=== PATIENT | male | born 1950 | race Hispanic/Latino ===

== ENCOUNTER → 2017-05-25 | Outpatient (CLI) | payer OTHER | END | disposition home or self-care (01) | LOC: RAH 11:59 | PROVIDERS: ATTEND Internal Medicine | DX: J44.9 Chronic obstructive pulmonary disease, unspecified (principal); I10 Essential (primary) hypertension | CPT/HCPCS: 71046 ==

== ENCOUNTER → 2017-06-04 | Outpatient (CLI) | payer OTHER | END | disposition home or self-care (01) | LOC: RAH 09:26 | PROVIDERS: ATTEND Internal Medicine | DX: Z87.891 Personal history of nicotine dependence (principal) | CPT/HCPCS: 76775 ==

== ENCOUNTER → 2018-01-21 | Outpatient (CLI) | payer OTHER | END | disposition home or self-care (01) | LOC: RAH 09:33 | PROVIDERS: ATTEND Internal Medicine | DX: M54.2 Cervicalgia (principal); I10 Essential (primary) hypertension; J44.9 Chronic obstructive pulmonary disease, unspecified; Z87.891 Personal history of nicotine dependence | CPT/HCPCS: 70360 ==

== ENCOUNTER → 2018-05-22 | Outpatient (CLI) | payer OTHER, SELFPAY | END | disposition home or self-care (01) | LOC: OIH 14:20 | PROVIDERS: ATTEND Internal Medicine Cardiovascular Disease | DX: Z13.6 Encounter for screening for cardiovascular disorders (principal) | CPT/HCPCS: 75571 ==

== ENCOUNTER → 2018-05-28 | Outpatient (CLI) | payer OTHER | END | disposition home or self-care (01) | LOC: SHCH 11:39 | PROVIDERS: ATTEND Internal Medicine Cardiovascular Disease | DX: I10 Essential (primary) hypertension (principal) | CPT/HCPCS: 93306 ==

== ENCOUNTER → 2018-09-23 | Outpatient (CLI) | payer OTHER | END | disposition home or self-care (01) | LOC: RAH 13:01 | PROVIDERS: ATTEND Internal Medicine | DX: M19.012 Primary osteoarthritis, left shoulder (principal) | CPT/HCPCS: 73030 ==

== ENCOUNTER → 2024-02-15 | Outpatient (CLI) | payer OTHER | END | disposition home or self-care (01) | LOC: RAH 10:39 | PROVIDERS: ATTEND Nurse Practitioner Family | DX: M47.812 Spondylosis without myelopathy or radiculopathy, cervical region (principal); M54.2 Cervicalgia; W19.XXXA Unspecified fall, initial encounter | CPT/HCPCS: 72040 ==

== ENCOUNTER → 2024-03-20 | Outpatient (CLI) | payer OTHER ==
--- NOTE | 2024-03-20 14:49 | HMCIMG ---
CHEST 2VWS HISTORY: COPD COMPARISON: 05/25/2015 FINDINGS: Frontal and lateral projections of the chest were obtained. There is no acute pulmonary infiltrates or failure. The heart is not enlarged. Aortic calcifications are seen. Prominent interstitial markings are seen. Degenerative changes are seen of the thoracolumbar spine. IMPRESSION: 1. No acute pulmonary infiltrates.
== END | disposition home or self-care (01) ==
LOC: RAH 11:51
DX: J44.9 Chronic obstructive pulmonary disease, unspecified (principal); M47.815 Spondylosis without myelopathy or radiculopathy, thoracolumbar region; I70.0 Atherosclerosis of aorta
CPT/HCPCS: 71046

== ENCOUNTER 2024-09-21 17:23 | Emergency (ER) | payer OTHER ==
[~2024-09-21] VITALS: Ht 180.3 cm; Wt 97.1 kg
[2024-09-21 18:21] LABS: MEAN CORPUSCULAR HEMOGLOBIN 32.1 pg (27.0-33.0); MEAN CORPUSCULAR HGB CONC 33.3 g/dL (32.0-36.0); MEAN CORPUSCULAR VOLUME 96.4 fL (79-99); RED BLOOD CELL COUNT(AUTO) 4.98 MIL/uL (4.50-6.20); RED CELL DISTRIBUTION WIDTH 13.8 % (11.0-15.5); WHITE BLOOD COUNT (AUTO) 11.5 K/uL (4.8-10.8)
[2024-09-21 18:30] LABS: POTASSIUM 3.9 mmol/L (3.5-5.1)
--- NOTE | 2024-09-21 18:36 | ERN ---
ED Note History of Present Illness Stated Complaint: THROAT PAIN,PAIN WHILE EATING Chief Complaint: Sore Throat Time Seen by MD: 17:35 Dictation: 73-year-old male presents to the ED for evaluation of throat pain onset three days ago. Patient reports difficulty swallowing, but denies any fever, SOB or other associated symptoms at this time. Allergies: Coded Allergies: No Known Drug Allergies (Unverified Allergy, Unknown, 09/21/24) Past Medical History Past Medical History: Diabetes-Type II Surgical History: None Review of System Dictation Constitutional: Negative for fever,chills, and weight loss Eyes: Negative for injury, pain,redness, and discharge ENT: Positive for throat pain, difficulty swallowing Cardiovascular: Negative for chest pain, palpitations, and edema Respiratory: Negative for shortness of breath, cough, and wheezing, Abdomen/GI: Negative for abdominal pain, nausea, vomiting, diarrhea, and con stipation Back: Negative for injury and pain : Negative for injury, bleeding and discharge MS/Extremity: Negative for injury and deformity Skin: Negative for rash, and discoloration Neuro: Negative for headache, weakness, numbness, tingling, and seizure Psych: Negative for suicide ideation, homicidal ideation, and hallucinations Initial Vital Sign VS Vital Signs Date Time Temp Pulse Resp B/P (MAP) Pulse Ox O2 Delivery O2 Flow Rate FiO2 09/21/24 17:31 98.4 95 14 123/71 96 Room Air 0 09/21/24 19:24 21 Physical Exam Dictation General: awake, alert, NAD Head/Face: Normocephalic, atraumatic Eyes: PERRL, EOMI, vision at baseline ENT: Pseudomembrane exudates and erythema to posterior pharynx Neck: Trachea midline, supple, no nuchal rigidity Cardiovascular: RRR, normal S1/S2, No MRGs, no JVD Respiratory: CTAB, no respiratory distress, No rales or wheezes Abdomen: Soft, non-tender, non-distended, normal bowel sounds, no guarding or rebound. Skin: Warm, dry, normal turgor, no rash MS/Extremity: Pulses equal, no cyanosis, neurovascular intact, FROM Neuro: COAx4, GCS 15, strength 5/5, CN 2-12 intact, normal cerebellar exam, normal gait, Psych: Normal behavior, mood, and affect normal Results (Laboratory/Radiology) Laboratory/Radiology Laboratory Tests Test 5/11/25 17:38 09/21/24 18:10 Group A Streptococcus Rapid positive (NEGATIVE) *A White Blood Count 11.5 K/uL (4.8-10.8) H Red Blood Count 4.98 MIL/uL (4.50-6.20) Hemoglobin 16.0 g/dL (14.0-18.0) Hematocrit 48.0 % (42-54) Mean Corpuscular Volume 96.4 fL (79-99) Mean Corpuscular Hemoglobin 32.1 pg (27.0-33.0) Mean Corpuscular Hemoglobin Concent 33.3 g/dL (32.0-36.0) Red Cell Distribution Width 13.8 % (11.0-15.5) Platelet Count 228 K/uL (130-400) Mean Platelet Volume 10.6 fL (7.5-10.5) H Nucleated Red Blood Cells 0.0 % (0.0-0.19) Sodium Level 138 mmol/L (136-145) Potassium Level 3.9 mmol/L (3.5-5.1) Chloride Level 102 mmol/L (101-111) Carbon Dioxide Level 26 mmol/L (21-32) Blood Urea Nitrogen 19 mg/dL (7-18) H Creatinine 1.0 mg/dL (0.5-1.3) Glomerular Filtration Rate Calc 80 mL/min (>90) Random Glucose 158 mg/dL (70-105) H Total Calcium 9.2 mg/dL (8.5-10.1) Labs Reviewed?: Yes CT Scan Comment: REASON: evaluate parapharyngeal abscess , and IJ clots ? Lemmieres ORDERING PHYSICIAN: JOSH BARBOUR MD PROCEDURE: NKSOFTI W - CT NECK SOFT TISS W/CONTRAST CT NECK SOFT TISS W/CONTRAST HISTORY: evaluate parapharyngeal abscess , and IJ clots ? Lemmieres TECHNIQUE: CT soft tissue neck was performed after intravenous administration of Omnipaque contrast. Coronal and sagittal reformats were obtained. CT was performed with one or more of the following dose reduction techniques: Automated exposure control, adjustment of the mA and/or kV according to the patient's size, or use of the iterative reconstruction technique. Comparison study performed earlier the same day. FINDINGS: Redemonstration of asymmetric soft tissue swelling involving the right palatine/lingual tonsil as well as oropharynx and pharynx. There is no evidence of peritonsillar abscess. Right IJ is grossly within normal limits. No obvious clot is identified. The remainder of the study is stable. IMPRESSION: 1. Redemonstration of asymmetric soft tissue swelling involving the right palatine/lingual tonsil as well as oropharynx and pharynx. There is no evidence of peritonsillar abscess. 2. Right IJ is grossly within normal limits. No obvious clot is identified. DICTATED BY: DASH ARANGO MD DATE: 09/21/242109 ELECTRONICALLY SIGNED BY: DASH ARANGO MD DATE: 09/21/242114 ED Course ED Course Orders Procedure Category Date Status Time Rapid (Group A Strep) LAB 09/21/24 Complete 17:37 Cbc Without LAB 09/21/24 Complete Differential 17:37 Basic Metabolic Panel LAB 09/21/24 Complete 17:37 Ceftriaxone 1g Vial PHA 09/21/24 Complete (Rocephine 1g Inj) 18:30 Dexamethasone 4mg/Ml PHA 09/21/24 Complete 1ml Vial (Dexametha 18:30 Ct Neck Soft Tiss W/O CT 09/21/24 Resulted Contrast 18:33 0.9% Nacl 500ml PHA 09/21/24 Complete Iv.Soln (Ns 500ml 20:[address] Ct [address] T[address] 09/21/24 Resulted W/Contrast 20:17 Iohexol (Omnipaque) PHA 09/21/24 Complete 20:29 Current Medications Medications (Trade) Dose Ordered Sig/Sandhya Route PRN Reason Start Time Stop Time Status Last Admin Dose Admin Ceftriaxone Sodium (ROCEphine 1G INJ) 1 gm ONCE ONCE IM 09/21/24 18:30 09/21/24 18:31 DC 09/21/24 19:05 Dexamethasone Sodium Phosphate (dexaMETHasone 4MG/ML 1ML VIAL) 10 mg ONCE ONCE IM 09/21/24 18:30 09/21/24 18:31 DC 09/21/24 19:05 Iohexol (Omnipaque) 50 ml STK-MED ONCE IV 09/21/24 20:29 09/21/24 20:30 DC Sodium Chloride 500 ml @ 0 mls/hr ONCE ONCE IV 09/21/24 20:30 09/21/24 20:31 DC 09/21/24 21:10 Vital Signs Date Time Temp Pulse Resp B/P (MAP) Pulse Ox O2 Delivery O2 Flow Rate FiO2 09/21/24 19:24 98.4 18 18 123/72 98 Room Air* 0 21 09/21/24 17:31 98.4 95 14 123/71 96 Room Air 0 7:00 p.m. patient was signed out to me by a.m. physician. I also independently re-evaluated the patient This is a 73-year-old male who came into the ER complaining of dysphagia and pa in in the neck anteriorly when he swallows. No history of any fevers chills or rigors no difficulty breathing. We will to swallow liquids but complains of pain. He has had bad teeth and is supposed to get surgery. Afebrile vital signs are stable. Labs reviewed has a WBC of 11.5 BUN and creatinine are [address] soft tissues of the neck without contrast showed only asymmetric swelling in the pharyngeal area with the palatine and lingual tonsils are. 7:45 p.m. after my re-evaluation, requested a CT scan of the soft tissues of the neck with contrast as I was concerned about Lemmiers syndrome. I spent a long time with the patient and spouse at bedside and updated them on labs and the CT soft tissues findings and my concerns and need for contrast study and they are agreeable I explained to them that if there is a drainable abscess efforts will be made to transfer him to a facility with ENT availability. I also called radiologist Dr. Schuler to see if there was any drainable abscess or fluid collection and he indicated that he could not comment on all that on a noncontrast study. 9:[address] scan of the soft tissues of the neck with contrast did not show any clot in the IJ. And there was no drainable obvious fluid. I updated the patient and spouse and we will discharge him to home with a trial of steroid and Augmentin for 10 days Medical Decision Making MDM MDM: Differential diagnosis: Strep, peritonsillar abscess, Lemmiers syndrome, mass lesion 1899- Patient care is being transferred to Dr. Barbour at shift change Risk of complication and/or morbidity or mortality of patient management: None Medications-Per medication reconciliation Need for hospitalization: Patient does not meet criteria for hospitalization. Need for emergency major/minor surgery: No There are no social concerns with this patient. Prescription drug management Prescriptions will include symptomatic care I independently interpreted the test that were performed, results were reviewed by me and considered findings on radiology if ordered. Medical management and examination interpretation discussions were had by me with other qualified healthcare professionals as indicated for the patient's care. Problem List Problem List: (1) Streptococcal pharyngitis (2) Tonsillitis DX & DISP Disposition: Discharge Departure Impression: Primary Impression: Tonsillitis Additional Impression: Streptococcal pharyngitis Condition: Stable Scripts Prednisone (Prednisone) 50 Mg Tablet 50 MG PO DAILY for 5 Days, #5 TAB 0 Refills Prov: JOSH BARBOUR MD 09/21/24 Amoxicillin/Potassium Clav (Augmentin 500-125 Tablet) 500 Mg-125 Mg Tablet 1 TAB PO BID for 10 Days, #20 TAB 0 Refills Prov: JOSH BARBOUR MD 09/21/24 Additional Instructions: Patient and the caregiver have been informed of all the diagnostic tests and the imaging conducted during the today's visit to the emergency room and has verbalized understanding of the results I have personally reviewed and interpreted all diagnostic exams performed here in the ER today as well as the vital signs documented by the nursing staff. The patient is now being discharged to home and should follow up with the primary care physician or the specialist as directed by the ER staff. Follow-up with primary care provider in 1 to 2 days. Take medications as directed here in the emergency room. Okay to continue home medications unless otherwise discussed during your visit in the emergency room today. Return to your nearest emergency room if symptoms worsen or if there is no improvement. C all 911 if you need immediate assistance. Take Tylenol or Motrin [id number] as needed and if no contraindications are present. Increase oral hydration. A wound culture or urine culture was ordered here in the emergency room department please follow-up with primary care provider and advise them to get repeat ports from our facility. If you had any German wrap/splints that were applied here, please do not remove them until you see your primary care or specialty. Referrals: SARAH ZENG MD (PCP) SHELL THURMAN MD September 21, 2024 18:36 JOSH BARBOUR MD September 21, 2024 20:13
--- NOTE | 2024-09-21 18:47 | NUR ---
Placed 20g on right hand.
--- NOTE | 2024-09-21 18:50 | NUR ---
Patient went to CT.
[2024-09-21] MEDS: dexaMETHasone SOD PHOSPHATE 4 MG/ML 1ML VIAL IM ONE (19:05)
[2024-09-21] MEDS: cefTRIAXone 1G VIAL IM ONE (19:05)
--- NOTE | 2024-09-21 19:36 | HMCIMG ---
CT NECK SOFT TISS W/O CONTRAST HISTORY: throat pain and swelling TECHNIQUE: CT soft tissue neck was performed without contrast. Coronal and sagittal reformats were obtained. CT was performed with one or more of the following dose reduction techniques: Automated exposure control, adjustment of the mA and/or kV according to the patient's size, or use of the iterative reconstruction technique. FINDINGS: The noncontrast nature this study limits evaluation for mass and fluid collection. Asymmetric soft tissue swelling of the right palatine/lingual tonsil, right oropharynx and pharynx. Concerning for an inflammatory/infectious changes, underlying mass not excluded. Correlate clinically. Consider direct visualization. Epiglottis and prevertebral soft tissues are within normal limits. Prominent bilateral neck lymph nodes, nonspecific. Multilevel cervical spondylosis is seen. Lung apices are clear. IMPRESSION: Asymmetric soft tissue swelling of the right palatine/lingual tonsil, right oropharynx and pharynx. Concerning for an inflammatory/infectious changes, underlying mass not excluded. Correlate clinically. Consider direct visualization.
[2024-09-21] MEDS ORDERED: IOHEXOL-350 50ML VIAL IV ONE (20:29)
[2024-09-21] MEDS: 0.9% NACL 500ML IV.SOLN 500 ML IV ONE (21:10)
--- NOTE | 2024-09-21 21:15 | HMCIMG ---
CT NECK SOFT TISS W/CONTRAST HISTORY: evaluate parapharyngeal abscess , and IJ clots ? Lemmieres TECHNIQUE: CT soft tissue neck was performed after intravenous administration of Omnipaque contrast. Coronal and sagittal reformats were obtained. CT was performed with one or more of the following dose reduction techniques: Automated exposure control, adjustment of the mA and/or kV according to the patient's size, or use of the iterative reconstruction technique. Comparison study performed earlier the same day. FINDINGS: Redemonstration of asymmetric soft tissue swelling involving the right palatine/lingual tonsil as well as oropharynx and pharynx. There is no evidence of peritonsillar abscess. Right IJ is grossly within normal limits. No obvious clot is identified. The remainder of the study is stable. IMPRESSION: 1. Redemonstration of asymmetric soft tissue swelling involving the right palatine/lingual tonsil as well as oropharynx and pharynx. There is no evidence of peritonsillar abscess. 2. Right IJ is grossly within normal limits. No obvious clot is identified.
[2024-09-21] MEDS ORDERED: AMOX-426 PO (21:33)
[2024-09-21] MEDS ORDERED: PRED50TA2 PO (21:34)
[2024-09-21 21:44] VITALS: BP 116/68; PULSE 20; RESP 20; TEMP 98.2; O2SAT 99
== END 2024-09-21 21:57 | disposition home or self-care (01) ==
LOC: EDH 17:23
DX: J02.0 Streptococcal pharyngitis (principal); E11.9 Type 2 diabetes mellitus without complications
CPT/HCPCS: 99285; 70491; 80048; 85027; 87880; 36415; 96372 ×2; J1100; J7040; J0696; Q9967; 70490